=== PATIENT | male | born 1985 | race Caucasian/White ===

== ENCOUNTER 2025-03-01 08:31 | Emergency (ER) | payer OTHER, SELFPAY ==
[2025-03-01 08:37] VITALS: BP 148/87; PULSE 89; TEMP 36.9; O2SAT 95; BMI 61.1
--- NOTE | 2025-03-01 08:45 | PC.NURSE ---
left knee pain, no swelling, redness or bruising to site. pt arrived with personal knee brace in place. pt reports seeing his PCP last yr for xrays for this knee and did some PT but this did not work. right foot inner ankle pain with some swelling at site. No redness, bruising and skin intact.
--- NOTE | 2025-03-01 08:47 | XR_ITS ---
The [address] [address] Patient Name: KARYN CLANCY MRN: [id number] date: 1985 Sex: M Assigned Patient Location: ER Current Patient Location: ER Accession/Order Number: [id number] Exam Date: 03/01/2025 08:55 Report Date: 03/01/2025 09:28 At the request of: GLADIS LEY MD Procedure: XR foot RT min 3V CLINICAL DATA: Pain at the left knee after getting out of the shower and feeling a pop. Pain at the right foot and ankle for the past 1 to 2 weeks, without injury. LEFT KNEE - 3 views COMPARISON: None AP, lateral and internal oblique views were obtained. There is no acute fracture or dislocation. There is slight medial tibiofemoral joint compartment narrowing. There is minor squaring off of the articular surface at the posterior patella. There is a trace amount joint fluid. No soft tissue swelling is noted. There is mild subcutaneous edema. XR/XR foot RT min 3V IMPRESSION: NO ACUTE BONY INJURY. RIGHT ANKLE - 3 views COMPARISON: None AP, lateral and oblique views were obtained. There is no evidence of fracture or dislocation. There is minor subchondral lucency at the periphery of the lateral talar dome where osteochondritis desiccants is not excluded. Mild spurring is seen at the anterior tibial plafond, medial malleolus and dorsum of the talus. There is mild diffuse soft tissue prominence. IMPRESSION: POSSIBLE MINOR OSTEOCHONDRITIS DISSECANS AT THE LATERAL TALAR DOME. NO ACUTE BONY FINDINGS. RIGHT FOOT - 3 views COMPARISON: None AP, lateral and oblique views were obtained. There is no evidence of fracture or dislocation. There is some spurring at the dorsum of the talus and anterior tibial plafond. There are no significant soft tissue abnormalities. IMPRESSION: NO ACUTE BONY FINDINGS. Impression dictated by: Arpita Bull M.D. 03/01/2025 9:28 AM Dictation Location: [place] [address] Electronically authenticated by: [id number] Y Date: 03/01/2025 09:28
--- NOTE | 2025-03-01 08:47 | XR_ITS ---
The [address] [address] Patient Name: KARYN CLANCY MRN: [id number] date: 1985 Sex: M Assigned Patient Location: ER Current Patient Location: ER Accession/Order Number: [id number] Exam Date: 03/01/2025 08:55 Report Date: 03/01/2025 09:28 At the request of: GLADIS LEY MD Procedure: XR foot RT min 3V CLINICAL DATA: Pain at the left knee after getting out of the shower and feeling a pop. Pain at the right foot and ankle for the past 1 to 2 weeks, without injury. LEFT KNEE - 3 views COMPARISON: None AP, lateral and internal oblique views were obtained. There is no acute fracture or dislocation. There is slight medial tibiofemoral joint compartment narrowing. There is minor squaring off of the articular surface at the posterior patella. There is a trace amount joint fluid. No soft tissue swelling is noted. There is mild subcutaneous edema. XR/XR knee LT 3V IMPRESSION: NO ACUTE BONY INJURY. RIGHT ANKLE - 3 views COMPARISON: None AP, lateral and oblique views were obtained. There is no evidence of fracture or dislocation. There is minor subchondral lucency at the periphery of the lateral talar dome where osteochondritis desiccants is not excluded. Mild spurring is seen at the anterior tibial plafond, medial malleolus and dorsum of the talus. There is mild diffuse soft tissue prominence. IMPRESSION: POSSIBLE MINOR OSTEOCHONDRITIS DISSECANS AT THE LATERAL TALAR DOME. NO ACUTE BONY FINDINGS. RIGHT FOOT - 3 views COMPARISON: None AP, lateral and oblique views were obtained. There is no evidence of fracture or dislocation. There is some spurring at the dorsum of the talus and anterior tibial plafond. There are no significant soft tissue abnormalities. IMPRESSION: NO ACUTE BONY FINDINGS. Impression dictated by: Arpita Bull M.D. 03/01/2025 9:28 AM Dictation Location: [place] [address] Electronically authenticated by: [id number] Y Date: 03/01/2025 09:28
--- NOTE | 2025-03-01 08:54 | ED_ITS ---
HPI HPI - General Adult General Chief complaint: Extremity Problem, Nontraumatic Stated complaint: L KNEE PAIN Time Seen by Provider: 03/01/25 08:36 Source: patient Mode of arrival: walk-in History of Present Illness HPI narrative: 39-year-old male presents for left knee and right ankle pain. He has been having some issues with his knee and he had seen a physician about it and he wears a brace. He went through some therapy but it was not getting much better. Today however he was stepping over the tub getting out of the shower and he felt a popping sensation. He points to the area just below the patella to indicate the area of pain. He did not fall. He is also been having some pain in his right ankle, chronically, without any sort of trauma. He points to the medial malleolar area to indicate the area of pain. Related Data Previous Rx's ?Medication ?Instructions ?Recorded acetaminophen 300 mg-codeine 30 mg 1 tab PO Q6H PRN pa in 5 days #20 03/01/25 tablet tabs ibuprofen 800 mg tablet 800 mg PO Q8H PRN pain #20 t abs 03/01/25 Allergies Allergy/AdvReac Type Severity Reaction Status Date / Time No Known Drug Allergies Allergy Verified 03/01/25 08:41 Review of Systems ROS Narrative A ten point review of systems is negative except as noted above. PFSH PFSH Social History Little interest or pleasure in doing things: not at all Feeling down, depressed, or hopeless: not at all Exam Narrative Exam Narrative: Nurses note and vital signs reviewed and patient is not hypoxic. General:The patient appears well and in no apparent distress.Patient is resting comfortably on cart. Skin:Warm, dry, no pallor noted.There is no rash noted. Head:Normocephalic, atraumatic Eye: Normal conjunctiva, no drainage Ears, Nose, Mouth, and Throat: oral mucosa is moist. Nares patent. Cardiovascular:Regular Rate and Rhythm Respiratory:Patient is in no distress, no accessory muscle use Back:non-tender GI:Normal bowel sounds, no tenderness to palpation, no masses appreciated.No rebound, guarding, or rigidity noted. Musculoskeletal: The left knee is examined. There is no bruise rash or abrasion or swelling. The knee joint is stable. The right ankle has some tenderness at the medial malleolus. No erythema bruise rash or abrasion. The foot itself is nontender. Neurological:A&O, normal speech Psychiatric:Cooperative Constitutional Vital Signs, click to edit/add: Last Vital Signs Temp 98.4 F 03/01/25 08:37 Pulse 89 03/01/25 08:37 Resp 16 03/01/25 08:37 BP 148/87 H 03/01/25 08:37 Pulse Ox 95 03/01/25 08:37 O2 Del Method Room Air 03/01/25 08:37 Course Vital Signs Vital signs: Vital Signs Temperature 98.4 F 03/01/25 08:37 Pulse Rate 89 03/01/25 08:37 Respiratory Rate 16 03/01/25 08:37 Blood Pressure 148/87 H 03/01/25 08:37 Pulse Oximetry 95 03/01/25 08:37 Oxygen Delivery Method Room Air 03/01/25 08:37 Temperature 98.4 F 03/01/25 08:37 Pulse Rate 89 03/01/25 08:37 Respiratory Rate 16 03/01/25 08:37 Blood Pressure 148/87 H 03/01/25 08:37 Pulse Oximetry 95 03/01/25 08:37 Oxygen Delivery Method Room Air 03/01/25 08:37 Medical Decision Making MDM Narrative Medical decision making narrative: 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 X-ray of knee shows no acute findings. He is referred to podiatry and was prescribed pain medication. Treatment diagnosis and follow-up were discussed with the patient. Differential Diagnosis Differential Diagnosis: Sprain, strain, fracture, arthritis Imaging Data Ankle foot, knee x-rays: Radiologist's impression: ITS Impressions Foot X-Ray 03/01/25 08:47 IMPRESSION: NO ACUTE BONY INJURY. RIGHT ANKLE - 3 views COMPARISON: None AP, lateral and oblique views were obtained. There is no evidence of fracture or dislocation. There is minor subchondral lucency at the periphery of the lateral talar dome where osteochondritis desiccants is not excluded. Mild spurring is seen at the anterior tibial plafond, medial malleolus and dorsum of the talus. There is mild diffuse soft tissue prominence. IMPRESSION: POSSIBLE MINOR OSTEOCHONDRITIS DISSECANS AT THE LATERAL TALAR DOME. NO ACUTE BONY FINDINGS. RIGHT FOOT - 3 views COMPARISON: None AP, lateral and oblique views were obtained. There is no evidence of fracture or dislocation. There is some spurring at the dorsum of the talus and anterior tibial plafond. There are no significant soft tissue abnormalities. IMPRESSION: NO ACUTE BONY FINDINGS. Impression dictated by: Arpita Bull M.D. 03/01/2025 9:28 AM Dictation Location: [place] [address] Electronically authenticated by: [id number] Y Date: 03/01/2025 09:28 Knee X-Ray 03/01/25 08:47 IMPRESSION: NO ACUTE BONY INJURY. RIGHT ANKLE - 3 views COMPARISON: None AP, lateral and oblique views were obtained. There is no evidence of fracture or dislocation. There is minor subchondral lucency at the periphery of the lateral talar dome where osteochondritis desiccants is not excluded. Mild spurring is seen at the anterior tibial plafond, medial malleolus and dorsum of the talus. There is mild diffuse soft tissue prominence. IMPRESSION: POSSIBLE MINOR OSTEOCHONDRITIS DISSECANS AT THE LATERAL TALAR DOME. NO ACUTE BONY FINDINGS. RIGHT FOOT - 3 views COMPARISON: None AP, lateral and oblique views were obtained. There is no evidence of fracture or dislocation. There is some spurring at the dorsum of the talus and anterior tibial plafond. There are no significant soft tissue abnormalities. IMPRESSION: NO ACUTE BONY FINDINGS. Impression dictated by: Arpita Bull M.D. 03/01/2025 9:28 AM Dictation Location: [place] [address] Electronically authenticated by: [id number] Y Date: 03/01/2025 09:28 Ankle X-Ray 03/01/25 08:55 IMPRESSION: NO ACUTE BONY INJURY. RIGHT ANKLE - 3 views COMPARISON: None AP, lateral and oblique views were obtained. There is no evidence of fracture or dislocation. There is minor subchondral lucency at the periphery of the lateral talar dome where osteochondritis desiccants is not excluded. Mild spurring is seen at the anterior tibial plafond, medial malleolus and dorsum of the talus. There is mild diffuse soft tissue prominence. IMPRESSION: POSSIBLE MINOR OSTEOCHONDRITIS DISSECANS AT THE LATERAL TALAR DOME. NO ACUTE BONY FINDINGS. RIGHT FOOT - 3 views COMPARISON: None AP, lateral and oblique views were obtained. There is no evidence of fracture or dislocation. There is some spurring at the dorsum of the talus and anterior tibial plafond. There are no significant soft tissue abnormalities. IMPRESSION: NO ACUTE BONY FINDINGS. Impression dictated by: Arpita Bull M.D. 03/01/2025 9:28 AM Dictation Location: [place] [address] Electronically authenticated by: [id number] Y Date: 03/01/2025 09:28 Discharge Plan Discharge Chief Complaint: Extremity Problem, Nontraumatic Clinical Impression: Osteochondritis dissecans of ankle, Knee pain, left Patient Disposition: Home, Self-Care Time of Disposition Decision: 09:41 Condition: Good Mode of Transportation: Private Vehicle Prescriptions / Home Meds: New acetaminophen-codeine 300-30 mg tablet 1 tab PO Q6H PRN (Reason: pain) 5 Days Qty: 20 0RF ibuprofen 800 mg tablet 800 mg PO Q8H PRN (Reason: pain) Qty: 20 0RF Print Language: Ivorian Instructions: Arthralgia (ED) Referrals: Cony Petersen DO [Primary Care Provider] - 1 week Orlando Kasper DPM [Physician, Podiatry] - 1 week
--- NOTE | 2025-03-01 08:55 | XR_ITS ---
The [address] [address] Patient Name: KARYN CLANCY MRN: [id number] date: 1985 Sex: M Assigned Patient Location: ER Current Patient Location: ER Accession/Order Number: [id number] Exam Date: 03/01/2025 08:55 Report Date: 03/01/2025 09:28 At the request of: GLADIS LEY MD Procedure: XR foot RT min 3V CLINICAL DATA: Pain at the left knee after getting out of the shower and feeling a pop. Pain at the right foot and ankle for the past 1 to 2 weeks, without injury. LEFT KNEE - 3 views COMPARISON: None AP, lateral and internal oblique views were obtained. There is no acute fracture or dislocation. There is slight medial tibiofemoral joint compartment narrowing. There is minor squaring off of the articular surface at the posterior patella. There is a trace amount joint fluid. No soft tissue swelling is noted. There is mild subcutaneous edema. XR/XR ankle RT min 3V IMPRESSION: NO ACUTE BONY INJURY. RIGHT ANKLE - 3 views COMPARISON: None AP, lateral and oblique views were obtained. There is no evidence of fracture or dislocation. There is minor subchondral lucency at the periphery of the lateral talar dome where osteochondritis desiccants is not excluded. Mild spurring is seen at the anterior tibial plafond, medial malleolus and dorsum of the talus. There is mild diffuse soft tissue prominence. IMPRESSION: POSSIBLE MINOR OSTEOCHONDRITIS DISSECANS AT THE LATERAL TALAR DOME. NO ACUTE BONY FINDINGS. RIGHT FOOT - 3 views COMPARISON: None AP, lateral and oblique views were obtained. There is no evidence of fracture or dislocation. There is some spurring at the dorsum of the talus and anterior tibial plafond. There are no significant soft tissue abnormalities. IMPRESSION: NO ACUTE BONY FINDINGS. Impression dictated by: Arpita Bull M.D. 03/01/2025 9:28 AM Dictation Location: [place] [address] Electronically authenticated by: [id number] Y Date: 03/01/2025 09:28
== END 2025-03-01 10:09 | disposition home or self-care (01) ==
PROVIDERS: Emergency Provider Emergency Medicine; PCP Family Medicine
DX: M25.562 Pain in left knee (principal); M93.271 Osteochondritis dissecans, right ankle and joints of right foot
CPT/HCPCS: 73562; 73610; 73630; 99284

== ENCOUNTER 2025-05-01 14:04 | Outpatient (RCR) | payer OTHER, SELFPAY | END 2025-05-07 08:34 | disposition home or self-care (01) | LOC: PT 14:04 | PROVIDERS: PCP Family Medicine | DX: M25.562 Pain in left knee (principal) | CPT/HCPCS: 97110; 97140; 97162 ==